=== PATIENT | female | born 1995 | race Caucasian/White ===

== ENCOUNTER 2020-06-27 23:55 | Emergency (ER) | payer OTHER ==
[~2020-06-27] VITALS: Ht 152.4 cm; Wt 44.9 kg
[2020-06-28] MEDS ORDERED: PROTONIX40 MG (00:13)
[2020-06-28] MEDS ORDERED: BENTYL10 MG/1 ML (00:14)
[2020-06-28] MEDS ORDERED: KETO10TA2 PO (03:41)
[2020-06-28] MEDS ORDERED: PYRIDIUM DS200 MG PO (03:41)
[2020-06-28] MEDS ORDERED: KEFLEX500 MG PO (03:41)
== END 2020-06-28 04:17 ==
LOC: ER 23:55
DX: N39.0 Urinary tract infection, site not specified (principal); R10.32 Left lower quadrant pain